=== PATIENT | female | born 1955 | race Caucasian/White ===

== ENCOUNTER → 2018-06-23 | Outpatient (CLI) | payer BC ==
[2014-08-02 09:25] VITALS: BP 181/96
[~2018-06-23] MED LIST: CALC-71 PO; CHOL500016 PO; MAGN71.5 PO; MULT1TAB97 PO; NAPR-514 PO; ZOLP10TA PO
--- NOTE | 2018-06-23 14:05 | RAD ---
EXAM: Renal sonogram. HISTORY: Renal insufficiency. TECHNIQUE: Sonographic imaging of the kidneys and bladder was performed. COMPARISON: None. FINDINGS: The right kidney measures 10.4 cm [id number] and the left kidney measures 5.2 cm [id number]. There is a prominent right renal pelvis possibly due to pelviectasis. No solid or cystic renal lesion is seen. The bladder is unremarkable. IMPRESSION: 1. Decreased left renal size due to atrophy. 2. Prominent right renal pelvis. This may be due to pelviectasis. There is no kelly hydronephrosis. Electronically signed by: Cordelia Goodman MD (06/23/2018 2:01 PM) [id number]
== END | disposition home or self-care (01) ==
LOC: US 10:25
PROVIDERS: ATTEND Internal Medicine Nephrology
DX: N26.1 Atrophy of kidney (terminal) (principal); N18.3 Chronic kidney disease, stage 3 (moderate)
CPT/HCPCS: 76770